=== PATIENT | male | born 1985 | race African-American/Black ===

== ENCOUNTER 2018-04-09 21:50 | Emergency (ER) | payer SELFPAY ==
[2018-04-09] MEDS ORDERED: NS 0.9% 1000 ML* 1,000 ML IV ONE (22:30)
[2018-04-09 23:00] LABS: ABS Basophils 0.1 10^3/ul (0-0.2); ABS Eosinophils 0.3 10^3/ul (0-0.6); ABS Lymphocytes 2.1 10^3/ul (1.0-4.8); ABS Monocytes 0.5 10^3/ul (0-0.8); ABS Neutrophils 4.2 10^3/ul (1.5-7.7); ABS Nucleated RBC 0 10^3/ul; Eosinophil % 4.1 % (0-6); Hematocrit 44 % (42-52); Hemoglobin 14.6 g/dl (14.0-18.0); Lymphocyte % 28.8 % (25-47); Mean Corpuscular HGB Conc 33 g/dl (31-36); Mean Corpuscular Hemoglobin 28 pg (27-31); Mean Corpuscular Volume 83 fL (80-94); Mean Platelet Volume 7.5 um3 (7.4-10.4); Nucleated Red Blood Cells % 0.1; Platelet Count 225 10^3/ul (150-450); Red Blood Count 5.31 10^6/ul (4.0-5.4); Red Cell Distribution Width 15 % (10.5-15); White Blood Count 7.2 10^3/ul (3.5-10.8)
[2018-04-09 23:11] LABS: EGFR Non-African American 91.3 (>60)
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
[2018-04-10 02:49] VITALS: BP 132/89
--- NOTE | 2018-04-10 07:36 | RAD ---
INDICATION: Confusion. COMPARISON: There are no prior studies available for comparison. TECHNIQUE: Contiguous axial sections of the brain were obtained from the skull base to the vertex without contrast. FINDINGS: The ventricles, cisterns and sulci are within normal limits. No significant focal abnormality or mass effect is seen. There is no evidence for hemorrhage. No significant focal osseous abnormality is seen. The visualized portion of the paranasal sinuses and mastoid air cells appear clear. There is a surgical plate present along the right anterior orbital rim. IMPRESSION: NO EVIDENCE FOR GROSS ACUTE INFARCT, MASS EFFECT OR HEMORRHAGE.
== END 2018-04-10 02:53 | disposition home or self-care (01) ==
LOC: ED 21:50
DX: F19.10 Other psychoactive substance abuse, uncomplicated (principal)
CPT/HCPCS: 36415; 70450; 80053; 80320; 82550; 84443; 85025; 99284; G0480

== ENCOUNTER → 2018-12-08 19:02 | Emergency (ER) | payer SELFPAY ==
[~2018-12-08 19:02] MED LIST: Clindamycin CAP* 150 MG PO ONE; oxyCODONE/Acetamin 5/325 MG* TAB PO ONE
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
[2018-12-08 21:54] VITALS: BP 166/100
== END | disposition home or self-care (01) ==
LOC: ED 19:02
DX: K08.89 Other specified disorders of teeth and supporting structures (principal); F17.200 Nicotine dependence, unspecified, uncomplicated
CPT/HCPCS: 99282; A9270-GY

== ENCOUNTER 2018-12-22 14:29 | Emergency (ER) | payer SELFPAY ==
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
[2018-12-22] MEDS ORDERED: Ketorolac INJ* 60 MG/2 ML VIAL IM ONE (16:27)
[2018-12-22 16:45] VITALS: BP 134/73
== END 2018-12-22 16:44 | disposition home or self-care (01) ==
LOC: ED 14:29
DX: K08.89 Other specified disorders of teeth and supporting structures (principal); F17.210 Nicotine dependence, cigarettes, uncomplicated
CPT/HCPCS: 96372; 99282; J1885